=== PATIENT | male | born 1930 | race Caucasian/White ===

== ENCOUNTER 2017-03-07 10:47 | Outpatient (CLI) ==
[2017-03-07 11:53] LABS: PROTHROMBIN TIME 120.8 SEC (9.3-11.0)
== END 2017-03-07 10:48 | disposition home or self-care (01) ==
LOC: RAD 10:47 → LAB 10:48
PROVIDERS: ATTEND Family Medicine
DX: Z51.81 Encounter for therapeutic drug level monitoring (principal); Z79.01 Long term (current) use of anticoagulants
CPT/HCPCS: 36415; 85610